=== PATIENT | male | born 1960 | race Caucasian/White ===

== ENCOUNTER 2021-05-03 17:33 | Inpatient (IN) | payer BC ==
[~2021-05-03] VITALS: Ht 180.3 cm; Wt 79.7 kg
[2021-05-03] MEDS ORDERED: JANTOVEN7.5 MG PO (17:57)
[2021-05-03] MEDS ORDERED: EUTHYROX25 MCG PO (17:57)
[2021-05-03] MEDS ORDERED: CELLCEPT 5500 MG/TAB PO (17:58)
[2021-05-03] MEDS ORDERED: PREDNISONE 5MG5 MG PO (17:58)
[2021-05-03] MEDS ORDERED: ZOVIRAX400 MG PO (17:59)
[2021-05-03] MEDS ORDERED: GAMUNEX-C1 GM/10 ML IJ (18:00)
[2021-05-03 18:43] LABS: HEMATOCRIT 45.2 % (42.0-52.0); MEAN CELL VOLUME 85 fl (78-100); MEAN CORPUSCULAR HEMOGLOBIN 28 pg (27-31); MEAN CORPUSCULAR HGB CONC 33 g/dL (33-37); PLATELET COUNT 227 K/mm3 (130-400); RED BLOOD COUNT 5.31 M/mm3 (4.20-5.60); RED CELL DISTRIBUTION WIDTH 13.7 % (11.5-14.5); WHITE BLOOD COUNT 3.7 K/mm3 (4.8-10.8)
[2021-05-03 18:54] LABS: ALBUMIN 3.6 g/dL (3.4-4.8)
[2021-05-03 18:55] LABS: POTASSIUM 3.3 mmol/L (3.5-5.1)
[2021-05-03 18:56] LABS: CALCIUM 8.9 mg/dL (8.3-10.5)
[2021-05-03 18:59] LABS: TOTAL BILIRUBIN 0.6 mg/dL (0.2-1.2)
[2021-05-03 19:37] LABS: PROTHROMBIN TIME 30.6 SECONDS (9.0-12.0)
[2021-05-03 19:47] LABS: LYMPHOCYTE 7 % (20-51); MONOCYTE 15 % (3-10); NEUTROPHILS 78 % (42-75)
[2021-05-03 23:00] VITALS: BP 122/71
[2021-05-04 02:30] VITALS: BP 127/64
[2021-05-04 03:29] LABS: URINE APPEARANCE CLEAR; URINE COLOR YELLOW
[2021-05-04 03:30] LABS: PH-URINE 5.5 (5.0 - 8.0); URINE BILIRUBIN NEGATIVE (NEGATIVE); URINE BLOOD TRACE (NEGATIVE); URINE GLUCOSE NEGATIVE (NEGATIVE); URINE KETONE NEGATIVE (NEGATIVE); URINE LEUKOCYTE ESTERASE NEGATIVE (NEGATIVE); URINE NITRATE NEGATIVE (NEGATIVE); URINE PROTEIN(semi-quant) 1+ (NEGATIVE); URINE UROBILINOGEN NORMAL (NORMAL); URINE WBC 0-1 /hpf (0-3)
[2021-05-04 06:43] VITALS: BP 119/69
[2021-05-04 07:01] LABS: HEMATOCRIT 38.1 % (42.0-52.0); HEMOGLOBIN 12.7 g/dL (13.5-18.0); MEAN CELL VOLUME 86 fl (78-100); MEAN CORPUSCULAR HEMOGLOBIN 29 pg (27-31); MEAN CORPUSCULAR HGB CONC 33 g/dL (33-37); MEAN PLATELET VOLUME 9.8 fl (7.4-10.4); PLATELET COUNT 202 K/mm3 (130-400); RED BLOOD COUNT 4.41 M/mm3 (4.20-5.60); RED CELL DISTRIBUTION WIDTH 13.7 % (11.5-14.5)
[2021-05-04 07:19] LABS: POTASSIUM 3.3 mmol/L (3.5-5.1)
[2021-05-04 07:21] LABS: TOTAL PROTEIN 5.6 g/dL (6.2-8.1)
[2021-05-04 07:23] LABS: TOTAL BILIRUBIN 0.4 mg/dL (0.2-1.2)
[2021-05-04 07:27] LABS: BAND 0 % (0-10); LYMPHOCYTE 16 % (20-51); MONOCYTE 15 % (3-10); NEUTROPHILS 65 % (42-75)
[2021-05-04 10:20] VITALS: BP 95/62
[2021-05-04 13:34] VITALS: BP 115/73
[2021-05-04 18:00] VITALS: BP 124/75
[2021-05-04 22:18] VITALS: BP 143/77
[2021-05-05 02:08] VITALS: BP 152/80
[2021-05-05 05:58] VITALS: BP 131/80
[2021-05-05 06:47] LABS: HEMATOCRIT 47.5 % (42.0-52.0); HEMOGLOBIN 15.8 g/dL (13.5-18.0); MEAN CELL VOLUME 85 fl (78-100); MEAN CORPUSCULAR HEMOGLOBIN 28 pg (27-31); MEAN CORPUSCULAR HGB CONC 33 g/dL (33-37); MEAN PLATELET VOLUME 9.8 fl (7.4-10.4); PLATELET COUNT 159 K/mm3 (130-400); RED BLOOD COUNT 5.56 M/mm3 (4.20-5.60); WHITE BLOOD COUNT 3.1 K/mm3 (4.8-10.8)
[2021-05-05 06:59] LABS: ALBUMIN 2.8 g/dL (3.4-4.8); POTASSIUM 4.3 mmol/L (3.5-5.1)
[2021-05-05 07:00] LABS: CALCIUM 8.4 mg/dL (8.3-10.5); LYMPHOCYTE 9 % (20-51); MONOCYTE 14 % (3-10); NEUTROPHILS 77 % (42-75)
[2021-05-05 07:02] LABS: TOTAL PROTEIN 5.4 g/dL (6.2-8.1)
[2021-05-05 07:03] LABS: TOTAL BILIRUBIN 0.3 mg/dL (0.2-1.2)
[2021-05-05 10:00] VITALS: BP 110/60
[2021-05-05 13:26] VITALS: BP 113/66
[2021-05-05 17:34] VITALS: BP 123/69
[2021-05-05 22:25] VITALS: BP 152/77
[2021-05-06 01:13] VITALS: BP 124/80
[2021-05-06 01:43] VITALS: BP 163/86
[2021-05-06 05:54] VITALS: BP 154/78
[2021-05-06 10:02] VITALS: BP 124/73
[2021-05-06 12:12] LABS: HEMATOCRIT 39.3 % (42.0-52.0); HEMOGLOBIN 13.3 g/dL (13.5-18.0); MEAN CELL VOLUME 84 fl (78-100); MEAN CORPUSCULAR HEMOGLOBIN 29 pg (27-31); MEAN CORPUSCULAR HGB CONC 34 g/dL (33-37); MEAN PLATELET VOLUME 9.4 fl (7.4-10.4); PLATELET COUNT 267 K/mm3 (130-400); RED BLOOD COUNT 4.66 M/mm3 (4.20-5.60); RED CELL DISTRIBUTION WIDTH 13.9 % (11.5-14.5); WHITE BLOOD COUNT 6.5 K/mm3 (4.8-10.8)
[2021-05-06 12:36] LABS: CALCIUM 8.5 mg/dL (8.3-10.5)
[2021-05-06 12:38] LABS: TOTAL PROTEIN 5.6 g/dL (6.2-8.1)
[2021-05-06 12:39] LABS: TOTAL BILIRUBIN 0.3 mg/dL (0.2-1.2)
[2021-05-06 12:50] LABS: LYMPHOCYTE 7 % (20-51); MONOCYTE 10 % (3-10); NEUTROPHILS 82 % (42-75)
[2021-05-06 13:45] LABS: PROTHROMBIN TIME 42.2 SECONDS (9.0-12.0)
[2021-05-06] MEDS ORDERED: DOXYCYCLINE MO100 M3 PO (13:58)
[2021-05-06] MEDS ORDERED: RT ALBUTEROL CC18 GM IH (13:59)
[2021-05-06] MEDS ORDERED: DECADRON6 M1 PO (14:01)
[2021-05-06 14:15] VITALS: BP 120/71
== END 2021-05-06 14:49 | disposition home or self-care (01) | DRG 177 ==
LOC: ED 17:33 → MED/SURG 22:27
PROVIDERS: Nurse Practitioner; ADMIT Physician Assistant
DX: U07.1 COVID-19 (principal); J12.82 Pneumonia due to coronavirus disease 2019; E87.1 Hypo-osmolality and hyponatremia; R09.02 Hypoxemia; E03.9 Hypothyroidism, unspecified; E86.0 Dehydration; E87.6 Hypokalemia; Z79.01 Long term (current) use of anticoagulants; Z79.52 Long term (current) use of systemic steroids; N28.9 Disorder of kidney and ureter, unspecified
CPT/HCPCS: J0696; J1100; J3480; J7030